=== PATIENT | female | born 1960 | race Caucasian/White ===

== ENCOUNTER 2017-03-15 06:58 | Inpatient (IN) | payer OTHER ==
[~2017-03-15] VITALS: Ht 162.6 cm; Wt 69.7 kg
[~2017-03-15 06:58] MED LIST: ASPI1TAB30 PO; DOXY100T PO; HYDR-3240 PO; INSU100C5 SQ-INSULIN; INSU100I13 SQ-INSULIN; INSU100V8 SQ; LEVO750T26 PO; LIRA0.6P SQ; METH750T87 PO; SITA50TA PO
[2017-03-15] MEDS ORDERED: ONDANSETRON 2MG/ML, 2ML ONE (07:15)
[2017-03-15] MEDS ORDERED: ONDANSETRON 2MG/ML, 2ML IVPush ONE (07:30)
[2017-03-15] MEDS ORDERED: MORPHINE SULFATE 4 MG/ML, 1ML IVPush ONE (07:30)
[2017-03-15] MEDS ORDERED: SODIUM CHLORIDE 0.9% 1,000ML IVBOLUS ONE ×2 (07:30)
[2017-03-15 07:35] LABS: PATH.CAST-FLAG NOT PRESENT; SPERM-FLAG NOT PRESENT; SRC-FLAG NOT PRESENT; XTAL-FLAG NOT PRESENT; YLC-FLAG NOT PRESENT
[2017-03-15] MEDS ORDERED: MORPHINE SULFATE 4 MG/ML, 1ML ONE (07:39)
[2017-03-15 07:53] LABS: ASPARTATE AMINO TRANSFERASE 23 U/L (15-37); BLOOD UREA NITROGEN 38 mg/dL (7-18)
[2017-03-15] MEDS ORDERED: NS + 20MEQ KCL 1,000 ML IV ONE ×2 (08:17→08:32)
[2017-03-15] MEDS ORDERED: REGULAR INSULIN 62.5 UNITS in SODIUM CHLORIDE 0.9% 249.375 ML IV PRN ×2 (08:17→10:30)
[2017-03-15 08:43] LABS: FIO2 ROOM AIR %; PH, VENOUS 6.992 pH (7.320-7.420)
[2017-03-15] MEDS: D5%-0.45NACL+KCL 20MEQ 1,000 ML IV SCH ×3 (10:12→23:17)
[2017-03-15] MEDS ORDERED: ONDANSETRON 2MG/ML, 2ML IVPush PRN (10:30)
[2017-03-15] MEDS ORDERED: LABETALOL 5MG/ML, 20ML IVPush PRN (10:30)
[2017-03-15] MEDS ORDERED: TEMAZEPAM 15 MG CAPSULE PO PRN (10:30)
[2017-03-15] MEDS ORDERED: POLYETHYLENE GLYCOL 17 GM PACKET PO PRN (10:30)
[2017-03-15] MEDS ORDERED: METHOCARBAMOL 750 MG TABLET PO PRN (10:30)
[2017-03-15] MEDS: ENOXAPARIN 40 MG/0.4 ML SQ SCH (11:28)
[2017-03-15] MEDS: SODIUM CHLORIDE 0.9% 1,000 ML IV SCH ×2 (11:28→15:12)
[2017-03-15 15:11] LABS: BLOOD UREA NITROGEN 29 mg/dL (7-18)
[2017-03-15 20:05] LABS: BLOOD UREA NITROGEN 26 mg/dL (7-18)
[2017-03-16 00:32] LABS: BLOOD UREA NITROGEN 24 mg/dL (7-18)
[2017-03-16] MEDS: ACETAMINOPHEN 325 MG TABLET PO PRN (02:28)
[2017-03-16 04:00] VITALS: BP 96/56
[2017-03-16 05:07] LABS: ASPARTATE AMINO TRANSFERASE 12 U/L (15-37); BLOOD UREA NITROGEN 21 mg/dL (7-18)
[2017-03-16] MEDS: D5%-0.45NACL+KCL 20MEQ 1,000 ML IV SCH ×2 (05:58→12:52)
[2017-03-16] MEDS ORDERED: SODIUM PHOSPHATE 20 MMOL in SODIUM CHLORIDE 0.9% 500 ML IV ONE (07:30)
[2017-03-16 08:17] LABS: BLOOD UREA NITROGEN 19 mg/dL (7-18)
[2017-03-16] MEDS ORDERED: REGULAR INSULIN 62.5 UNITS in SODIUM CHLORIDE 0.9% 249.375 ML IV PRN (08:17)
[2017-03-16] MEDS ORDERED: SENNA/DOCUSATE TABLET PO SCH (09:00)
[2017-03-16] MEDS: ENOXAPARIN 40 MG/0.4 ML SQ SCH (10:32)
[2017-03-16 12:31] LABS: BLOOD UREA NITROGEN 16 mg/dL (7-18)
[2017-03-16] MEDS: INSULIN DETEMIR 100 UNITS/ML, PEN SQ-INSULIN SCH (14:28)
[2017-03-16] MEDS: INSULIN ASPART 100 UNITS/ML, PEN SQ-INSULIN SCH ×2 (17:12→20:38)
[2017-03-17] MEDS: INSULIN DETEMIR 100 UNITS/ML, PEN SQ-INSULIN SCH (01:45)
[2017-03-17] MEDS: ACETAMINOPHEN 325 MG TABLET PO PRN (04:16)
[2017-03-17 04:30] VITALS: BP 114/73
[2017-03-17 04:49] LABS: BLOOD UREA NITROGEN 14 mg/dL (7-18)
[2017-03-17] MEDS: INSULIN ASPART 100 UNITS/ML, PEN SQ-INSULIN SCH (06:28)
[2017-03-17 08:30] VITALS: BP 125/69
[2017-03-17] MEDS ORDERED: INSULIN DETEMIR 100 UNITS/ML, PEN SQ-INSULIN SCH (13:30)
== END 2017-03-17 11:25 | disposition home or self-care (01) | DRG 637 ==
LOC: ED 08:18 → EDIP 09:17 → CCU 10:53 → DCLOUNGE 03-17 11:12
PROVIDERS: ADMIT Internal Medicine; ATTEND Internal Medicine
DX: E13.10 Other specified diabetes mellitus with ketoacidosis without coma (principal); N17.0 Acute kidney failure with tubular necrosis; E87.1 Hypo-osmolality and hyponatremia; E86.0 Dehydration; I34.1 Nonrheumatic mitral (valve) prolapse; D72.829 Elevated white blood cell count, unspecified; Z90.711 Acquired absence of uterus with remaining cervical stump; Z79.4 Long term (current) use of insulin; Z88.5 Allergy status to narcotic agent; Z88.0 Allergy status to penicillin; Z88.8 Allergy status to other drugs, medicaments and biological substances; Z79.899 Other long term (current) drug therapy; Z82.5 Family history of asthma and other chronic lower respiratory diseases
CPT/HCPCS: 36415; 74022; 80048; 80053; 80061; 81001; 82010; 82803; 82962; 83036; 83690; 83735; 84100; 84443; 85025; 87081; 93005; 96361; 96365; 96375; J1650; J1815; J2405; J3480; J7030; J7040; J7050

== ENCOUNTER 2018-02-16 05:35 | Emergency (ER) | payer OTHER ==
[~2018-02-16] VITALS: Ht 162.6 cm; Wt 65.0 kg
[~2018-02-16 05:35] MED LIST changes: -ASPI1TAB30 PO; +ASPI1TAB31 PO
[2018-02-16] MEDS ORDERED: NPH,100V5 SQ (05:44)
[2018-02-16] MEDS ORDERED: LORazepam 1MG TABLET PO ONE (06:00)
[2018-02-16] MEDS ORDERED: LORazepam 1MG TABLET ONE (06:17)
[2018-02-16 06:28] LABS: BASOPHILS # (AUTO) 0.12 x10^3/uL (0-0.1); BASOPHILS % (AUTO) 2 % (0-1); EOSINOPHILS # (AUTO) 0.16 x10^3/uL (0-0.4); EOSINOPHILS % (AUTO) 2 % (1-7); LYMPHOCYTES # (AUTO) 2.21 x10^3/uL (1-3.4); LYMPHOCYTES % (AUTO) 27 % (22-44); MD NO; MEAN CORPUSCULAR HEMOGLOBIN 30.1 pg (27.0-34.8); MEAN CORPUSCULAR HGB CONC 33.6 g/dL (32.4-35.8); MEAN CORPUSCULAR VOLUME 89.6 fL (80-100); MEAN PLATELET VOLUME 8.7 fL (7.4-10.4); MONOCYTES % (AUTO) 7 % (2-9); NEUTROPHILS # (AUTO) 5.02 x10^3/uL (1.8-6.8); NEUTROPHILS % (AUTO) 62 % (42-75); PLATELET COUNT 294 x10^3/uL (130-400); RED CELL DISTRIBUTION WIDTH 13.7 % (9.6-15.2)
[2018-02-16 06:40] LABS: CALCIUM 9.4 mg/dL (8.5-10.1); CHLORIDE 108 mmol/L (98-107)
[2018-02-16 06:47] LABS: ALANINE AMINOTRANSFERASE 24 U/L (12-78); ALBUMIN 3.6 g/dL (3.4-5.0); ALKALINE PHOSPHATASE 90 U/L (45-117); ANION GAP 9 mmol/L (5-15); BILIRUBIN,TOTAL 0.3 mg/dL (0.2-1.0); CREATININE 0.85 mg/dL (0.55-1.02); TOTAL PROTEIN 7.2 g/dL (6.4-8.2)
[2018-02-16 07:58] VITALS: BP 129/75
== END 2018-02-16 08:00 | disposition home or self-care (01) ==
LOC: ED 07:56
DX: G25.2 Other specified forms of tremor (principal); E11.9 Type 2 diabetes mellitus without complications
CPT/HCPCS: 36415; 80053; 85025; 99284

== ENCOUNTER → 2018-03-09 | Outpatient (CLI) | payer OTHER ==
[~2018-03-09] MED LIST changes: +NPH,100V5 SQ
== END | disposition home or self-care (01) ==
LOC: CFH 09:10
PROVIDERS: ATTEND Internal Medicine
DX: I08.0 Rheumatic disorders of both mitral and aortic valves (principal); E11.9 Type 2 diabetes mellitus without complications; R01.1 Cardiac murmur, unspecified
CPT/HCPCS: 93306

== ENCOUNTER 2020-02-14 07:15 | Day surgery (SDC) | payer OTHER ==
[2020-02-13 09:10] VITALS: BP 112/72
[2020-02-13 09:50] LABS: CHLORIDE 109 mmol/L (98-107)
[2020-02-13 10:09] LABS: ALANINE AMINOTRANSFERASE 25 U/L (12-78); ALBUMIN 3.5 g/dL (3.4-5.0); ALKALINE PHOSPHATASE 90 U/L (45-117); ANION GAP 5 mmol/L (5-15); BILIRUBIN,TOTAL 0.3 mg/dL (0.2-1.0); CALCIUM 9.9 mg/dL (8.5-10.1); CREATININE 0.84 mg/dL (0.55-1.02); TOTAL PROTEIN 7.5 g/dL (6.4-8.2)
[~2020-02-14] VITALS: Ht 162.6 cm; Wt 68.2 kg
[2020-02-14] MEDS ORDERED: LACTATED RINGERS 1,000 ML IV SCH (07:53)
[2020-02-14] MEDS ORDERED: CHLORHEXIDINE 15 ML UDC MM ONE (08:00)
[2020-02-14] MEDS ORDERED: FAMOTIDINE 20 MG TABLET PO ONE (08:30)
[2020-02-14] MEDS ORDERED: ACETAMINOPHEN 500 MG TABLET PO ONE (08:30)
[2020-02-14] MEDS ORDERED: OXYcodone IR 5MG TABLET PO ONE (08:30)
[2020-02-14] MEDS ORDERED: FENTANYL PF 250 MCG/5ML ONE (08:43)
[2020-02-14] MEDS ORDERED: MIDAZOLAM 1 MG/ML, 2ML ONE (08:43)
[2020-02-14] MEDS ORDERED: ROPIvacaine/PF 0.5%, 30 ML ONE ×2 (08:44)
[2020-02-14] MEDS ORDERED: CEFAZOLIN 1,000 MG ONE ×2 (08:44)
[2020-02-14] MEDS ORDERED: PROPOFOL 10 MG/ML, 20ML ONE ×2 (08:44)
[2020-02-14] MEDS ORDERED: ONDANSETRON 2MG/ML, 2ML ONE (10:23)
[2020-02-14] MEDS ORDERED: INSULIN LISPRO 100 UNIT/ML, 3ML VIAL SQ-INSULIN ONE (11:00)
[2020-02-14] MEDS ORDERED: FENTANYL PF 100 MCG/2ML ONE (11:06)
[2020-02-14] MEDS ORDERED: OXYcodone 5 MG/5 ML ORAL.SOL UDC ONE (11:07)
[2020-02-14] MEDS ORDERED: MEPERIDINE/PF 25MG/0.5ML IVPush PRN (11:30)
[2020-02-14] MEDS ORDERED: FENTANYL PF 100 MCG/2ML IV PRN (11:30)
[2020-02-14] MEDS ORDERED: PROMETHAZINE 25 MG/ML, 1ML IVPush PRN (11:30)
[2020-02-14] MEDS ORDERED: OXYcodone 5 MG/5 ML ORAL.SOL UDC PO PRN (11:30)
== END 2020-02-14 12:50 | disposition home or self-care (01) ==
LOC: OUT 07:15
PROVIDERS: ATTEND Orthopaedic Surgery Foot and Ankle Surgery
DX: S82.65XD Nondisplaced fracture of lateral malleolus of left fibula, subsequent encounter for closed fracture with routine healing (principal); Z11.59 Encounter for screening for other viral diseases; S93.432D Sprain of tibiofibular ligament of left ankle, subsequent encounter; M24.672 Ankylosis, left ankle; E11.9 Type 2 diabetes mellitus without complications; Z79.4 Long term (current) use of insulin; Z79.899 Other long term (current) drug therapy; Z88.0 Allergy status to penicillin; Z88.8 Allergy status to other drugs, medicaments and biological substances; X58.XXXD Exposure to other specified factors, subsequent encounter
CPT/HCPCS: 27726; 27829; 29898; 36415; 64445; 73610; 80053; 82962; 93005; C1713; J0690; J1817; J2250; J2405; J2704; J2795; J3010; J7120; U0001; 76000

== ENCOUNTER 2020-07-01 15:41 | Emergency (ER) | payer OTHER ==
[~2020-07-01] VITALS: Ht 162.6 cm; Wt 73.3 kg
[2020-07-01] MEDS ORDERED: SODIUM CHLORIDE FLUSH 10ML SYR IVF ONE (16:30)
[2020-07-01 16:36] LABS: BASOPHILS % (AUTO) 0 % (0-1); EOSINOPHILS % (AUTO) 3 % (1-7); LYMPHOCYTES % (AUTO) 32 % (22-44); MEAN CORPUSCULAR HEMOGLOBIN 29.6 pg (27.0-34.8); MEAN CORPUSCULAR HGB CONC 32.8 g/dL (32.4-35.8); MEAN PLATELET VOLUME 8.8 fL (7.4-10.4); MONOCYTES % (AUTO) 9 % (2-9); NEUTROPHILS % (AUTO) 56 % (42-75); PLATELET COUNT 320 x10^3/uL (130-400); RED BLOOD COUNT 4.66 x10^6/uL (3.82-5.3); RED CELL DISTRIBUTION WIDTH 14.1 % (9.6-15.2)
[2020-07-01 16:42] LABS: ALANINE AMINOTRANSFERASE 27 U/L (12-78); ALBUMIN 3.7 g/dL (3.4-5.0); ANION GAP 8 mmol/L (5-15); CALCIUM 9.9 mg/dL (8.5-10.1); CHLORIDE 103 mmol/L (98-107)
[2020-07-01 16:48] LABS: ALKALINE PHOSPHATASE 127 U/L (45-117); BILIRUBIN,TOTAL 0.3 mg/dL (0.2-1.0); CREATININE 1.06 mg/dL (0.55-1.02); TOTAL PROTEIN 7.7 g/dL (6.4-8.2); TROPONIN I < 0.015 ng/mL (0.000-0.045)
[2020-07-01 16:52] LABS: MD NO
--- NOTE | 2020-07-01 17:02 | NUR ---
PT UPRIGHT ON GURNEY AWAKE & COMFORTABLE, WATCHING TV, RESPONDS APPROP TO STAFF, NAD, COMFORT MEASURES PROVIDED, CALL LIGHT WITHIN REACH.
[2020-07-01] MEDS ORDERED: OMNIPAQUE 350 MG/ML, 100ML BOTTLE ONE (17:55)
[2020-07-01 18:01] VITALS: BP 134/74
--- NOTE | 2020-07-01 18:01 | NUR ---
PT REMAINS UPRIGHT ON GURNEY AWAKE & COMFORTABLE, WATCHING TV, RESPONDS APPROP TO STAFF, NAD, COMFORT MEASURES PROVIDED, CALL LIGHT WITHIN REACH.
--- NOTE | 2020-07-01 18:49 | NUR ---
Patient given discharge instructions and they have confirmed that they understand the instructions. Patient ambulatory with steady gait.
== END 2020-07-01 18:51 | disposition home or self-care (01) ==
LOC: ED 18:25
DX: R06.00 Dyspnea, unspecified (principal); R07.89 Other chest pain; R06.02 Shortness of breath; E11.9 Type 2 diabetes mellitus without complications
CPT/HCPCS: 36415; 71275; 80053; 83880; 84484; 85025; 85379; 93005; 99285; Q9967

== ENCOUNTER 2021-05-30 11:44 | Emergency (ER) | payer OTHER ==
[~2021-05-30] VITALS: Ht 162.6 cm; Wt 61.6 kg
[~2021-05-30 11:44] MED LIST changes: +HYDR-2214 PO; -HYDR-3240 PO
--- NOTE | 2021-05-30 15:14 | NUR ---
diet kitchen cook note: Pt to room from lobby.
--- NOTE | 2021-05-30 16:30 | NUR ---
Pt resting in bed, NADN.
--- NOTE | 2021-05-30 17:16 | NUR ---
PT RESTING IN BED, ON MONITORS, NO DISTRESS. UP FOR ERMD RECHECK.
--- NOTE | 2021-05-30 17:57 | NUR ---
PT RESTING IN BED, NO RESPIR DISTRESS NOTED, PT PROTECTING OWN AIRWAY WELL. PT REMAINS ON MONITORS, VSS. AWAITING ALL LAB RESULTS. CONT TO MONITOR.
[2021-05-30 18:27] LABS: BASOPHILS % (AUTO) 1 % (0-1); EOSINOPHILS % (AUTO) 0 % (1-7); LYMPHOCYTES % (AUTO) 10 % (22-44); MEAN CORPUSCULAR HEMOGLOBIN 30.6 pg (27.0-34.8); MEAN CORPUSCULAR HGB CONC 33.9 g/dL (32.4-35.8); MEAN PLATELET VOLUME 9.3 fL (7.4-10.4); MONOCYTES % (AUTO) 8 % (2-9); NEUTROPHILS % (AUTO) 81 % (42-75); PLATELET COUNT 268 x10^3/uL (130-400); RED BLOOD COUNT 5.21 x10^6/uL (3.82-5.3); RED CELL DISTRIBUTION WIDTH 13.6 % (9.6-15.2)
[2021-05-30 18:37] LABS: ALBUMIN 3.3 g/dL (3.4-5.0); ANION GAP 19 mmol/L (5-15); CALCIUM 10.8 mg/dL (8.5-10.1); CHLORIDE 103 mmol/L (98-107)
[2021-05-30 18:41] LABS: ALANINE AMINOTRANSFERASE 27 U/L (12-78); ALKALINE PHOSPHATASE 92 U/L (45-117); BILIRUBIN,TOTAL 0.4 mg/dL (0.2-1.0); CREATININE 1.13 mg/dL (0.55-1.02); TOTAL PROTEIN 8.4 g/dL (6.4-8.2)
[2021-05-30 18:49] VITALS: BP 127/78
--- NOTE | 2021-05-30 18:49 | NUR ---
PT OK FOR D/C PER [facility]. PT VERBALIZED UNDERSTANDING OF D/C INSTRUCTIONS.
== END 2021-05-30 18:51 | disposition home or self-care (01) ==
LOC: ED 12:47
DX: U07.1 COVID-19 (principal); J40 Bronchitis, not specified as acute or chronic; R05 Cough; R53.83 Other fatigue; R10.9 Unspecified abdominal pain
CPT/HCPCS: 36415; 71045; 80053; 83605; 83690; 85025; 87040; 93005; 99285; U0003; U0005; 82962

== ENCOUNTER 2021-05-31 10:45 | Inpatient (IN) | payer OTHER ==
[~2021-05-31] VITALS: Ht 167.6 cm; Wt 70.9 kg
[~2021-05-31 10:45] MED LIST changes: +CALCIUM CHLORIDE 10%, 10ML SYR ONE; +ETOMIDATE 20 MG/10 ML ONE; +VECURONIUM 20 MG VIAL ONE
[2021-05-31] MEDS ORDERED: ASPIRIN 325 MG TABLET PO STA (10:48)
[2021-05-31] MEDS ORDERED: INSULIN SINGLE DOSE, ER ONE (10:59)
[2021-05-31] MEDS ORDERED: CALCIUM CHLORIDE 10%, 10ML SYR IVPush ONE (11:00)
[2021-05-31] MEDS ORDERED: CEFTRIAXONE 1,000 MG in DEXTROSE 5% 50 ML IVPB ONE (11:00)
[2021-05-31] MEDS ORDERED: INSULIN REGULAR 100 UNITS/ML, 3ML VIAL IVPush ONE (11:00)
[2021-05-31] MEDS ORDERED: SODIUM CHLORIDE 0.9% 1,000ML IVBOLUS ONE ×2 (11:00)
[2021-05-31] MEDS ORDERED: SODIUM CHLORIDE FLUSH 10ML SYR IVF ONE (11:00)
[2021-05-31] MEDS ORDERED: AZITHROMYCIN 500 MG in SODIUM CHLORIDE 0.9% 250 ML IV ONE (11:00)
--- NOTE | 2021-05-31 11:00 | NUR ---
DR JAVIER AT BEDSIDE, PT MED NOTED WITH ETOMIDATE WITH EFFECT AND PT WAS INTUBATED BY DR JAVIER W/O DIFFICULTY. RIGHT NARE NGT PLACED AND CONFIRMED WITH AUSCULTATION. PCXR ORDERED FOR ETT AND NGT PLACEMENT. TURNER CATH INSERTED W/O DIFFICULTY. PT TOLLERATED ALL PROCEDURES WELL.
[2021-05-31 11:32] LABS: MEAN CORPUSCULAR HEMOGLOBIN 30.6 pg (27.0-34.8); MEAN PLATELET VOLUME 9.9 fL (7.4-10.4); PLATELET COUNT 353 x10^3/uL (130-400); RED BLOOD COUNT 4.93 x10^6/uL (3.82-5.3); RED CELL DISTRIBUTION WIDTH 16.3 % (9.6-15.2)
[2021-05-31 11:43] LABS: ALANINE AMINOTRANSFERASE 28 U/L (12-78); ALBUMIN 2.9 g/dL (3.4-5.0); ANION GAP 30 mmol/L (5-15); CALCIUM 12.5 mg/dL (8.5-10.1); CHLORIDE 102 mmol/L (98-107); CREATININE 2.36 mg/dL (0.55-1.02); INTERNATIONAL NORMALIZED RATIO 1.07 (0.93-1.1); PROTHROMBIN TIME 11.4 Seconds (9.6-11.5)
[2021-05-31 11:48] LABS: ALKALINE PHOSPHATASE 149 U/L (45-117); BILIRUBIN,TOTAL 0.4 mg/dL (0.2-1.0); TOTAL PROTEIN 7.7 g/dL (6.4-8.2); TROPONIN I 0.349 ng/mL (0.000-0.045)
[2021-05-31 11:53] LABS: FIO2 100 %
[2021-05-31 12:03] LABS: MEAN CORPUSCULAR HGB CONC 29.2 g/dL (32.4-35.8)
[2021-05-31] MEDS ORDERED: SODIUM BICARBONATE 1 MEQ/ML, 50ML VIAL IVPush ONE ×3 (12:07→12:15)
[2021-05-31] MEDS ORDERED: SODIUM BICARB 8.4%, 50ML SYRINGE ONE ×2 (12:07→12:17)
[2021-05-31 12:09] LABS: ACETONE, SERUM Large (80mg/dL) (Negative)
--- NOTE | 2021-05-31 12:15 | NUR ---
LATE ENTRY, PT WITH RHYTHMIC EYE FLUTTERING NOTED, DISCUSSED WITH DR JAVIER. ORDER REC'D FOR ATIVAN AND EEG.
[2021-05-31] MEDS ORDERED: LORazepam 2 MG/ML, 1ML ONE (12:17)
[2021-05-31 12:24] LABS: ANISOCYTOSIS 1+; BAND#(MANUAL) 3.43 x10^3/uL; BANDS%(MANUAL) 13 % (0-7); LYMPH#(MANUAL) 2.64 x10^3/uL (1-3.4); LYMPHS% (MANUAL) 10 % (22-44); METAMYELOCYTES# (MANUAL) 0.53 x10^3/uL (0-0); METAMYELOCYTES% (MANUAL) 2 % (0-1); MONOS#(MANUAL) 1.06 x10^3/uL (0.3-2.7); MONOS% (MANUAL) 4 % (2-9); OVALOCYTES 1+; SEG#(MANUAL) 18.74 x10^3/uL (1.8-6.8); SEGS% (MANUAL) 71 % (42-75)
[2021-05-31 12:25] LABS: <PLATELET ESTIMATE> ADEQUATE; <PLT MORPHOLOGY> NORMAL PLT MORPH; ECHINOCYTES 1+
[2021-05-31 12:29] LABS: PMNS WITH VACUOLES 1+
[2021-05-31] MEDS ORDERED: LORazepam 2 MG/ML, 1ML IVPush ONE (12:30)
[2021-05-31] MEDS ORDERED: ETOMIDATE 20 MG/10 ML IVPush ONE ×2 (12:30)
--- NOTE | 2021-05-31 12:35 | NUR ---
LATE ENTRY, PT TO CT WITH RN, RT TRANSPORT. CT COMPLETED W/O DIFFICULTY AND PT RTD TO ED
[2021-05-31 12:58] LABS: FIO2 80 %
--- NOTE | 2021-05-31 13:12 | NUR ---
BIB EMS FROM HOME, ALTERED LOC, BS = HIGH, PEAKED T-WAVES T/O EKG, EMS GAVE 300NS, 1 AMP BICARB, 1GM CALCIUM INSPECTOR PACKER, PT ARRIVES NRB 15. DR JAVIER AT BEDSIDE, ASSESSMENT DISCUSSED AND ORDERS REC'D. DR SMYTH ALSO PRESENT AND CONFIRMS POC
[2021-05-31 13:24] LABS: ALBUMIN 2.2 g/dL (3.4-5.0); ANION GAP 26 mmol/L (5-15); CHLORIDE 115 mmol/L (98-107); CREATININE 1.96 mg/dL (0.55-1.02)
--- NOTE | 2021-05-31 13:40 | NUR ---
LATE ENTRY, DR SMYTH AT BEDSIDE, PT ASSESSMENT REVIEWED. ADDITIONAL ORDERS REC'D
--- NOTE | 2021-05-31 14:50 | NUR ---
LATE ENTRY, DR JAVIER BROUGHT TO BEDSIDE. PT ASSESSMENT DISCUSSED, POC AND QUESTIONS ANSWERED.
[2021-05-31] MEDS ORDERED: PHARMACY MAY ADJ FOR RENAL FX MC PRN (15:00)
[2021-05-31] MEDS ORDERED: ONDANSETRON 2MG/ML, 2ML IVPush PRN (15:00)
[2021-05-31] MEDS ORDERED: VANCOMYCIN PMX 1GM/200ML 200 ML IV ONE (15:00)
[2021-05-31] MEDS: SODIUM CHLORIDE 0.9% 1,000 ML IV SCH ×2 (15:08→23:22)
[2021-05-31] MEDS: MEROPENEM 1 GM in SODIUM CHLORIDE 0.9% 100 ML IV SCH ×2 (15:16→23:06)
[2021-05-31 15:19] LABS: MICROSCOPIC INDICATED
[2021-05-31 15:25] LABS: ANION GAP 25 mmol/L (5-15); CALCIUM 10.1 mg/dL (8.5-10.1); CHLORIDE 116 mmol/L (98-107); CREATININE 1.94 mg/dL (0.55-1.02)
--- NOTE | 2021-05-31 15:29 | NUR ---
DR SMYTH AT BEDSIDE, POC DISCUSSED WITH AND QUESTIONS ANSWERED.
[2021-05-31] MEDS ORDERED: NOREPINEPHRINE 8 MG in SODIUM CHLORIDE 0.9% 242 ML IV PRN (15:30)
[2021-05-31 15:38] LABS: TROPONIN I 0.668 ng/mL (0.000-0.045)
--- NOTE | 2021-05-31 15:58 | NUR ---
SPOUSE, NOAH ERICKSON [phone]
[2021-05-31] MEDS: REGULAR INSULIN 100 UNITS in SODIUM CHLORIDE 0.9% 99 ML IV PRN ×2 (16:00→22:30)
[2021-05-31] MEDS ORDERED: HEPARIN 5,000 UNITS/ML, 1ML ONE (16:09)
[2021-05-31] MEDS ORDERED: ASPIRIN 300 MG SUPP ONE (16:09)
[2021-05-31] MEDS: HEPARIN 5,000 UNITS/ML, 1ML SQ SCH ×2 (16:13→23:22)
[2021-05-31] MEDS ORDERED: ASPIRIN 300 MG SUPP PR ONE (16:30)
[2021-05-31] MEDS ORDERED: VANCOMYCIN PER PHARMACY MC PRN (16:30)
[2021-05-31] MEDS ORDERED: PHARMACOKINETIC CONSULTATION MC ONE (16:30)
[2021-05-31] MEDS ORDERED: PHARMACOKINETIC MONITORING MC PRN (16:30)
[2021-05-31] MEDS ORDERED: PHARMACY INSTRUCTION MC PRN (17:00)
[2021-05-31] MEDS ORDERED: VANCOMYCIN 1,500 MG in SODIUM CHLORIDE 0.9% 250 ML IV ONE (17:00)
[2021-05-31] MEDS ORDERED: ASCORBIC ACID 250 MG TAB PO SCH (17:00)
[2021-05-31] MEDS ORDERED: CHOLECALCIFEROL 5,000u TAB ONE (17:18)
[2021-05-31] MEDS ORDERED: ASCORBIC ACID 500 MG TABLET ONE (17:18)
[2021-05-31] MEDS ORDERED: DEXAMETHASONE 4 MG/ML, 1ML ONE (17:18)
[2021-05-31] MEDS ORDERED: ZINC SULFATE 220 MG CAPSULE ONE (17:19)
[2021-05-31] MEDS ORDERED: ACETAMINOPHEN 650 MG SUPP ONE (17:23)
[2021-05-31] MEDS: ZINC SULFATE 220 MG CAPSULE PO SCH (17:25)
[2021-05-31] MEDS: CHOLECALCIFEROL 5,000u TAB PO SCH (17:26)
[2021-05-31] MEDS: DEXAMETHASONE 4 MG/ML, 1ML IVPush SCH (17:26)
--- NOTE | 2021-05-31 17:30 | NUR ---
LATE ENTRY, NOAH BANKS GOING HOME. REINFORCED VISITING POLICY GOING FORWARD. NO VISITORS IN THE ICU UNTIL FURTHER NOTICE. NOAH VERBALIZED UNDERSTANDING.
[2021-05-31] MEDS ORDERED: ACETAMINOPHEN 650 MG/20.3 ML UDC ONE (17:53)
[2021-05-31] MEDS: ACETAMINOPHEN 650 MG/20.3 ML UDC PO SCH ×2 (17:55→23:22)
[2021-05-31 18:00] VITALS: BP 88/52
[2021-05-31] MEDS ORDERED: REMDESIVIR 200 MG in SODIUM CHLORIDE 0.9% 100 ML IVPB ONE (18:00)
[2021-05-31] MEDS ORDERED: ACETAMINOPHEN 650 MG SUPP PR PRN (18:00)
[2021-05-31 19:08] LABS: ANION GAP 22 mmol/L (5-15); CALCIUM 10.1 mg/dL (8.5-10.1); CHLORIDE 120 mmol/L (98-107); CREATININE 2.37 mg/dL (0.55-1.02)
[2021-05-31] MEDS: D5%-0.45NACL+KCL 20MEQ 1,000 ML IV SCH ×2 (19:19→23:00)
[2021-05-31] MEDS ORDERED: PROPOFOL 100 ML IV ONE (19:36)
[2021-05-31] MEDS: THIAMINE 100 MG in SODIUM CHLORIDE 0.9% 50 ML IV SCH (19:59)
[2021-05-31] MEDS: PROPOFOL 100 ML IV PRN (20:00)
[2021-05-31] MEDS: FENTANYL PF 1,000 MCG in SODIUM CHLORIDE 0.9% 80 ML IV PRN (20:32)
[2021-05-31] MEDS ORDERED: NOREPINEPHRINE 32 MG in SODIUM CHLORIDE 0.9% 218 ML IV PRN (21:00)
[2021-05-31] MEDS ORDERED: SODIUM BICARBONATE 1 MEQ/ML, 50ML VIAL IVPush STA ×2 (21:35)
[2021-05-31] MEDS ORDERED: SODIUM BICARBONATE 8.4% 150 MEQ in DEXTROSE 5% 1,000 ML IV SCH (22:00)
[2021-06-01 01:11] LABS: ANION GAP 14 mmol/L (5-15); CALCIUM 9.7 mg/dL (8.5-10.1); CHLORIDE 124 mmol/L (98-107)
[2021-06-01 01:12] LABS: CREATININE 2.61 mg/dL (0.55-1.02)
[2021-06-01] MEDS: PROPOFOL 100 ML IV PRN ×3 (01:38→18:33)
[2021-06-01] MEDS ORDERED: POTASSIUM CHLORIDE 20 MEQ PACKET PO ONE (02:00)
[2021-06-01] MEDS ORDERED: POTASSIUM CHLORIDE 40 MEQ in SODIUM CHLORIDE 0.9% 100 ML IV ONE (02:30)
[2021-06-01] MEDS: REGULAR INSULIN 100 UNITS in SODIUM CHLORIDE 0.9% 99 ML IV PRN (04:15)
[2021-06-01] MEDS: D5%-0.45NACL+KCL 20MEQ 1,000 ML IV SCH (04:16)
[2021-06-01 05:56] LABS: MEAN PLATELET VOLUME 8.8 fL (7.4-10.4); PLATELET COUNT 231 x10^3/uL (130-400); RED BLOOD COUNT 4.13 x10^6/uL (3.82-5.3); RED CELL DISTRIBUTION WIDTH 13.9 % (9.6-15.2)
[2021-06-01] MEDS: ACETAMINOPHEN 650 MG/20.3 ML UDC PO SCH (06:11)
[2021-06-01] MEDS: HEPARIN 5,000 UNITS/ML, 1ML SQ SCH (06:11)
[2021-06-01 06:26] LABS: <PLATELET ESTIMATE> ADEQUATE; <PLT MORPHOLOGY> NORMAL PLT MORPH; ANISOCYTOSIS 1+; BAND#(MANUAL) 0.13 x10^3/uL; BANDS%(MANUAL) 1 % (0-7); LYMPH#(MANUAL) 1.31 x10^3/uL (1-3.4); LYMPHS% (MANUAL) 10 % (22-44); MONOS#(MANUAL) 0.92 x10^3/uL (0.3-2.7); MONOS% (MANUAL) 7 % (2-9); OVALOCYTES 1+; SEG#(MANUAL) 10.74 x10^3/uL (1.8-6.8); SEGS% (MANUAL) 82 % (42-75)
[2021-06-01] MEDS: PANTOPRAZOLE 40 MG IV IVPush SCH (06:33)
[2021-06-01 06:34] LABS: CHLORIDE 129 mmol/L (98-107)
[2021-06-01 07:10] LABS: ALANINE AMINOTRANSFERASE 24 U/L (12-78); ALKALINE PHOSPHATASE 87 U/L (45-117); ANION GAP 10 mmol/L (5-15); BILIRUBIN,TOTAL 0.3 mg/dL (0.2-1.0); CALCIUM 10.1 mg/dL (8.5-10.1); CREATININE 2.57 mg/dL (0.55-1.02); TOTAL PROTEIN 5.6 g/dL (6.4-8.2)
[2021-06-01 07:16] LABS: BILIRUBIN, DIRECT < 0.1 mg/dL (0.1-0.2); BILIRUBIN,INDIRECT 0.2 mg/dL (0.0-2.0)
[2021-06-01] MEDS: MEROPENEM 1 GM in SODIUM CHLORIDE 0.9% 100 ML IV SCH ×3 (07:55→21:41)
[2021-06-01 07:57] LABS: FIO2 50 %
[2021-06-01 08:17] LABS: D-DIMER 21.08 ug/mlFEU (0.00-0.52)
[2021-06-01] MEDS ORDERED: POTASSIUM CHLORIDE 20 MEQ PACKET NG ONE (09:00)
[2021-06-01] MEDS: ZINC SULFATE 220 MG CAPSULE PO SCH (09:00)
[2021-06-01] MEDS ORDERED: POTASSIUM CHLORIDE 20 MEQ TAB.ER.PRT ONE (09:16)
[2021-06-01] MEDS: ASCORBIC ACID 500 MG TABLET PO SCH ×2 (09:26→17:41)
[2021-06-01] MEDS: DEXAMETHASONE 4 MG/ML, 1ML IVPush SCH (09:26)
[2021-06-01] MEDS: CHOLECALCIFEROL 5,000u TAB PO SCH (09:27)
[2021-06-01 10:02] LABS: ANION GAP 7 mmol/L (5-15); CALCIUM 9.7 mg/dL (8.5-10.1); CHLORIDE 128 mmol/L (98-107); CREATININE 2.45 mg/dL (0.55-1.02)
[2021-06-01] MEDS ORDERED: GLUCAGON 1 MG IM PRN (11:00)
[2021-06-01] MEDS ORDERED: DEXTROSE 4 GM TAB.CHEW PO PRN (11:00)
[2021-06-01] MEDS ORDERED: DEXTROSE 50%, 50ML SYRINGE IVPush PRN (11:00)
[2021-06-01] MEDS ORDERED: PHARMACY INSTRUCTION MC PRN (11:00)
[2021-06-01] MEDS ORDERED: INSULIN LISPRO 100 UNITS/ML, PEN SQ-INSULIN SCH ×3 (11:00→20:00)
[2021-06-01] MEDS ORDERED: INSULIN LISPRO 100 UNITS/ML, PEN ONE (11:23)
[2021-06-01] MEDS ORDERED: ENOXAPARIN 60 MG/0.6 ML SQ SCH (13:00)
[2021-06-01] MEDS: FENTANYL PF 1,000 MCG in SODIUM CHLORIDE 0.9% 80 ML IV PRN (13:07)
[2021-06-01] MEDS ORDERED: INSULIN GLARGINE 100 UNITS/ML, PEN ONE (14:07)
[2021-06-01] MEDS ORDERED: INSULIN GLARGINE 100 UNITS/ML, PEN SQ-INSULIN SCH (14:30)
[2021-06-01] MEDS ORDERED: INSULIN LISPRO 100 UNIT/ML, 3ML VIAL SQ-INSULIN ONE (15:30)
[2021-06-01] MEDS ORDERED: INSULIN LISPRO 100 UNITS/ML, PEN SQ-INSULIN ONE (15:30)
[2021-06-01] MEDS: VANCOMYCIN 1,200 MG in SODIUM CHLORIDE 0.9% 250 ML IV SCH (16:12)
[2021-06-01] MEDS: REMDESIVIR 100 MG in SODIUM CHLORIDE 0.9% 100 ML IVPB SCH (17:41)
[2021-06-01] MEDS: POTASSIUM CHLORIDE 40 MEQ in DEXTROSE 5% 1,000 ML IV SCH (18:32)
[2021-06-01] MEDS ORDERED: HEPARIN 25,000 UNITS/250ML PMX 250 ML IV PRN (19:00)
[2021-06-01] MEDS ORDERED: HEPARIN 5,000 UNITS/ML, 1ML IV PRN (19:00)
[2021-06-01] MEDS ORDERED: HEPARIN 5,000 UNITS/ML, 1ML IV ONE (19:00)
[2021-06-01] MEDS: THIAMINE 100 MG in SODIUM CHLORIDE 0.9% 50 ML IV SCH (19:38)
[2021-06-01] MEDS: INSULIN LISPRO 100 UNITS/ML, PEN SQ-INSULIN SCH (20:10)
[2021-06-01] MEDS: INSULIN GLARGINE 100 UNITS/ML, PEN SQ-INSULIN SCH (20:11)
[2021-06-01] MEDS: SODIUM CHLORIDE FLUSH 10ML SYR IVF SCH (20:14)
[2021-06-02] MEDS: POTASSIUM CHLORIDE 40 MEQ in DEXTROSE 5% 1,000 ML IV SCH ×2 (00:13→06:28)
[2021-06-02] MEDS: INSULIN LISPRO 100 UNITS/ML, PEN SQ-INSULIN SCH ×7 (00:14→23:54)
[2021-06-02 04:22] LABS: MEAN CORPUSCULAR HGB CONC 34.3 g/dL (32.4-35.8); MEAN PLATELET VOLUME 8.5 fL (7.4-10.4); PLATELET COUNT 175 x10^3/uL (130-400); RED BLOOD COUNT 3.95 x10^6/uL (3.82-5.3); RED CELL DISTRIBUTION WIDTH 14.4 % (9.6-15.2)
[2021-06-02 04:29] LABS: ANION GAP 5 mmol/L (5-15); CALCIUM 8.7 mg/dL (8.5-10.1); CHLORIDE 122 mmol/L (98-107); CREATININE 2.31 mg/dL (0.55-1.02)
[2021-06-02 05:08] LABS: ANISOCYTOSIS 1+; BAND#(MANUAL) 1.25 x10^3/uL; BANDS%(MANUAL) 7 % (0-7); LYMPH#(MANUAL) 1.25 x10^3/uL (1-3.4); LYMPHS% (MANUAL) 7 % (22-44); MONOS#(MANUAL) 0.72 x10^3/uL (0.3-2.7); MONOS% (MANUAL) 4 % (2-9); SEG#(MANUAL) 14.68 x10^3/uL (1.8-6.8); SEGS% (MANUAL) 82 % (42-75)
[2021-06-02 05:09] LABS: <PLATELET ESTIMATE> ADEQUATE; <PLT MORPHOLOGY> NORMAL PLT MORPH; ECHINOCYTES 1+; OVALOCYTES 1+
[2021-06-02] MEDS: MEROPENEM 1 GM in SODIUM CHLORIDE 0.9% 100 ML IV SCH ×3 (06:25→22:17)
[2021-06-02] MEDS: PANTOPRAZOLE 40 MG IV IVPush SCH (06:34)
[2021-06-02] MEDS ORDERED: RIVAROXABAN 20 MG TABLET PO SCH (08:00)
[2021-06-02] MEDS: SODIUM CHLORIDE FLUSH 10ML SYR IVF SCH ×2 (09:00→19:50)
[2021-06-02] MEDS: DEXAMETHASONE 4 MG/ML, 1ML IVPush SCH (09:46)
[2021-06-02] MEDS: ZINC SULFATE 220 MG CAPSULE PO SCH (09:48)
[2021-06-02] MEDS: CHOLECALCIFEROL 5,000u TAB PO SCH (09:48)
[2021-06-02] MEDS: ASCORBIC ACID 500 MG TABLET PO SCH ×2 (09:49→17:09)
[2021-06-02] MEDS: INSULIN GLARGINE 100 UNITS/ML, PEN SQ-INSULIN SCH ×2 (10:04→19:50)
[2021-06-02] MEDS: RIVAROXABAN 15 MG TABLET PO SCH (10:06)
[2021-06-02] MEDS: VANCOMYCIN 1,200 MG in SODIUM CHLORIDE 0.9% 250 ML IV SCH (13:18)
[2021-06-02] MEDS: PROPOFOL 100 ML IV PRN ×2 (13:19→21:57)
[2021-06-02 14:57] LABS: ALBUMIN 1.8 g/dL (3.4-5.0); BILIRUBIN, DIRECT 0.1 mg/dL (0.1-0.2)
[2021-06-02 14:58] LABS: BILIRUBIN,INDIRECT 0.2 mg/dL (0.0-2.0); BILIRUBIN,TOTAL 0.3 mg/dL (0.2-1.0); TOTAL PROTEIN 5.1 g/dL (6.4-8.2)
[2021-06-02] MEDS: REMDESIVIR 100 MG in SODIUM CHLORIDE 0.9% 100 ML IVPB SCH (17:10)
[2021-06-02] MEDS: THIAMINE 100 MG in SODIUM CHLORIDE 0.9% 50 ML IV SCH (19:41)
[2021-06-03] MEDS: INSULIN LISPRO 100 UNITS/ML, PEN SQ-INSULIN SCH ×5 (04:13→20:07)
[2021-06-03 04:42] LABS: MEAN CORPUSCULAR HEMOGLOBIN 29.8 pg (27.0-34.8); MEAN CORPUSCULAR HGB CONC 33.8 g/dL (32.4-35.8); MEAN PLATELET VOLUME 9.8 fL (7.4-10.4); PLATELET COUNT 153 x10^3/uL (130-400); RED BLOOD COUNT 3.92 x10^6/uL (3.82-5.3); RED CELL DISTRIBUTION WIDTH 14.6 % (9.6-15.2)
[2021-06-03 04:52] LABS: ANION GAP 5 mmol/L (5-15); CHLORIDE 120 mmol/L (98-107); CREATININE 1.79 mg/dL (0.55-1.02)
[2021-06-03 05:51] LABS: BAND#(MANUAL) 2.86 x10^3/uL; BANDS%(MANUAL) 14 % (0-7); LYMPH#(MANUAL) 1.22 x10^3/uL (1-3.4); LYMPHS% (MANUAL) 6 % (22-44); MONOS#(MANUAL) 1.02 x10^3/uL (0.3-2.7); MONOS% (MANUAL) 5 % (2-9); SEGS% (MANUAL) 75 % (42-75)
[2021-06-03 05:53] LABS: <PLATELET ESTIMATE> ADEQUATE; <PLT MORPHOLOGY> NORMAL PLT MORPH; ANISOCYTOSIS 1+; ECHINOCYTES 1+; OVALOCYTES 1+
[2021-06-03] MEDS: PROPOFOL 100 ML IV PRN ×2 (08:25→15:12)
[2021-06-03] MEDS: PANTOPRAZOLE 40 MG IV IVPush SCH (08:43)
[2021-06-03] MEDS: MEROPENEM 1 GM in SODIUM CHLORIDE 0.9% 100 ML IV SCH ×3 (08:43→23:22)
[2021-06-03] MEDS: CHOLECALCIFEROL 5,000u TAB PO SCH (08:44)
[2021-06-03] MEDS: ASCORBIC ACID 500 MG TABLET PO SCH ×2 (08:44→16:07)
[2021-06-03] MEDS: DEXAMETHASONE 4 MG/ML, 1ML IVPush SCH (08:44)
[2021-06-03] MEDS: ZINC SULFATE 220 MG CAPSULE PO SCH (08:44)
[2021-06-03] MEDS: RIVAROXABAN 15 MG TABLET PO SCH (08:44)
[2021-06-03] MEDS: SODIUM CHLORIDE FLUSH 10ML SYR IVF SCH ×2 (08:45→20:08)
[2021-06-03] MEDS: INSULIN GLARGINE 100 UNITS/ML, PEN SQ-INSULIN SCH ×2 (08:46→20:08)
[2021-06-03] MEDS: REMDESIVIR 100 MG in SODIUM CHLORIDE 0.9% 100 ML IVPB SCH (17:12)
[2021-06-03] MEDS: THIAMINE 100 MG in SODIUM CHLORIDE 0.9% 50 ML IV SCH (20:07)
[2021-06-04] MEDS: PROPOFOL 100 ML IV PRN ×2 (01:17→06:24)
[2021-06-04] MEDS: INSULIN LISPRO 100 UNITS/ML, PEN SQ-INSULIN SCH ×5 (04:00→21:00)
[2021-06-04 04:37] LABS: MEAN CORPUSCULAR HEMOGLOBIN 29.9 pg (27.0-34.8); MEAN CORPUSCULAR HGB CONC 34.1 g/dL (32.4-35.8); MEAN PLATELET VOLUME 9.7 fL (7.4-10.4); PLATELET COUNT 109 x10^3/uL (130-400); RED BLOOD COUNT 4.12 x10^6/uL (3.82-5.3); RED CELL DISTRIBUTION WIDTH 15.2 % (9.6-15.2)
[2021-06-04 04:50] LABS: ALBUMIN 1.6 g/dL (3.4-5.0); ANION GAP 3 mmol/L (5-15); CALCIUM 9.5 mg/dL (8.5-10.1); CHLORIDE 116 mmol/L (98-107)
[2021-06-04 04:54] LABS: ALANINE AMINOTRANSFERASE 40 U/L (12-78); ALKALINE PHOSPHATASE 130 U/L (45-117); BILIRUBIN,TOTAL 0.6 mg/dL (0.2-1.0); CREATININE 1.46 mg/dL (0.55-1.02)
[2021-06-04 05:42] LABS: ANISOCYTOSIS 1+; BAND#(MANUAL) 0.45 x10^3/uL; BANDS%(MANUAL) 2 % (0-7); LYMPH#(MANUAL) 1.12 x10^3/uL (1-3.4); LYMPHS% (MANUAL) 5 % (22-44); MONOS#(MANUAL) 0.67 x10^3/uL (0.3-2.7); MONOS% (MANUAL) 3 % (2-9); SEG#(MANUAL) 20.07 x10^3/uL (1.8-6.8); SEGS% (MANUAL) 90 % (42-75)
[2021-06-04 05:43] LABS: <PLATELET ESTIMATE> DECREASED; <PLT MORPHOLOGY> NORMAL PLT MORPH
[2021-06-04] MEDS: RIVAROXABAN 15 MG TABLET PO SCH (08:35)
[2021-06-04] MEDS: PANTOPRAZOLE 40 MG IV IVPush SCH (08:35)
[2021-06-04] MEDS: ASCORBIC ACID 500 MG TABLET PO SCH ×2 (08:35→17:20)
[2021-06-04] MEDS: MEROPENEM 1 GM in SODIUM CHLORIDE 0.9% 100 ML IV SCH ×3 (08:35→22:59)
[2021-06-04] MEDS: DEXAMETHASONE 4 MG/ML, 1ML IVPush SCH (08:35)
[2021-06-04] MEDS: ZINC SULFATE 220 MG CAPSULE PO SCH (08:36)
[2021-06-04] MEDS: CHOLECALCIFEROL 5,000u TAB PO SCH (08:36)
[2021-06-04] MEDS: SODIUM CHLORIDE FLUSH 10ML SYR IVF SCH ×2 (08:38→21:12)
[2021-06-04] MEDS: INSULIN GLARGINE 100 UNITS/ML, PEN SQ-INSULIN SCH ×2 (08:39→21:00)
[2021-06-04] MEDS ORDERED: DEXMEDETOMIDINE 400 MCG in SODIUM CHLORIDE 0.9% 96 ML IV PRN (13:00)
[2021-06-04] MEDS: VANCOMYCIN 1,200 MG in SODIUM CHLORIDE 0.9% 250 ML IV SCH ×2 (17:20)
[2021-06-04] MEDS: REMDESIVIR 100 MG in SODIUM CHLORIDE 0.9% 100 ML IVPB SCH (18:36)
[2021-06-04] MEDS ORDERED: FENTANYL PF 100 MCG/2ML ONE (21:01)
[2021-06-04] MEDS: THIAMINE 100 MG in SODIUM CHLORIDE 0.9% 50 ML IV SCH (21:12)
[2021-06-04] MEDS: FENTANYL PF 100 MCG/2ML IVPush PRN (21:16)
[2021-06-05] MEDS: PROPOFOL 100 ML IV PRN ×2 (02:51→08:54)
[2021-06-05] MEDS: INSULIN LISPRO 100 UNITS/ML, PEN SQ-INSULIN SCH ×4 (03:00→21:05)
[2021-06-05 04:28] LABS: BASOPHILS % (AUTO) 0 % (0-1); EOSINOPHILS % (AUTO) 0 % (1-7); LYMPHOCYTES % (AUTO) 7 % (22-44); MEAN CORPUSCULAR HEMOGLOBIN 29.3 pg (27.0-34.8); MEAN CORPUSCULAR HGB CONC 33.3 g/dL (32.4-35.8); MEAN PLATELET VOLUME 9.8 fL (7.4-10.4); MONOCYTES % (AUTO) 11 % (2-9); NEUTROPHILS % (AUTO) 81 % (42-75); PLATELET COUNT 68 x10^3/uL (130-400); RED BLOOD COUNT 4.39 x10^6/uL (3.82-5.3); RED CELL DISTRIBUTION WIDTH 14.8 % (9.6-15.2)
[2021-06-05 04:38] LABS: ANION GAP 4 mmol/L (5-15); CALCIUM 8.7 mg/dL (8.5-10.1); CHLORIDE 115 mmol/L (98-107)
[2021-06-05 06:06] LABS: <PLATELET ESTIMATE> DECREASED; <PLT MORPHOLOGY> NORMAL PLT MORPH; ANISOCYTOSIS 1+; ECHINOCYTES 1+
[2021-06-05 06:10] LABS: OVALOCYTES 1+
[2021-06-05] MEDS: CHOLECALCIFEROL 5,000u TAB PO SCH (08:31)
[2021-06-05] MEDS: ZINC SULFATE 220 MG CAPSULE PO SCH (08:31)
[2021-06-05] MEDS: PANTOPRAZOLE 40 MG IV IVPush SCH (08:31)
[2021-06-05] MEDS: MEROPENEM 1 GM in SODIUM CHLORIDE 0.9% 100 ML IV SCH ×3 (08:31→23:07)
[2021-06-05] MEDS: DEXAMETHASONE 4 MG/ML, 1ML IVPush SCH (08:31)
[2021-06-05] MEDS: ASCORBIC ACID 500 MG TABLET PO SCH ×2 (08:31→15:27)
[2021-06-05] MEDS: INSULIN GLARGINE 100 UNITS/ML, PEN SQ-INSULIN SCH ×2 (09:00→21:05)
[2021-06-05] MEDS: SODIUM CHLORIDE FLUSH 10ML SYR IVF SCH ×2 (09:00→21:04)
[2021-06-05] MEDS: VANCOMYCIN 1,200 MG in SODIUM CHLORIDE 0.9% 250 ML IV SCH (11:47)
[2021-06-05] MEDS: THIAMINE 100 MG in SODIUM CHLORIDE 0.9% 50 ML IV SCH (21:04)
[2021-06-06] MEDS: INSULIN LISPRO 100 UNITS/ML, PEN SQ-INSULIN SCH ×2 (02:42→09:03)
[2021-06-06] MEDS: PROPOFOL 100 ML IV PRN (02:43)
[2021-06-06] MEDS: FENTANYL PF 100 MCG/2ML IVPush PRN (02:43)
[2021-06-06 05:09] LABS: MEAN CORPUSCULAR HEMOGLOBIN 29.9 pg (27.0-34.8); MEAN PLATELET VOLUME 11.2 fL (7.4-10.4); PLATELET COUNT 65 x10^3/uL (130-400); RED BLOOD COUNT 3.93 x10^6/uL (3.82-5.3); RED CELL DISTRIBUTION WIDTH 14.9 % (9.6-15.2)
[2021-06-06 05:11] LABS: ANION GAP 4 mmol/L (5-15); CALCIUM 9.2 mg/dL (8.5-10.1); CHLORIDE 113 mmol/L (98-107)
[2021-06-06 05:13] LABS: VANCOMYCIN,TROUGH 24.4 mcg/mL (5.0-10.0)
[2021-06-06] MEDS: VANCOMYCIN 1,200 MG in SODIUM CHLORIDE 0.9% 250 ML IV SCH (05:33)
[2021-06-06 06:16] LABS: BAND#(MANUAL) 1.36 x10^3/uL; BANDS%(MANUAL) 8 % (0-7); EOS#(MANUAL) 0.17 x10^3/uL (0.0-0.4); EOS% (MANUAL) 1 % (1-7); LYMPH#(MANUAL) 0.85 x10^3/uL (1-3.4); LYMPHS% (MANUAL) 5 % (22-44); METAMYELOCYTES# (MANUAL) 0.17 x10^3/uL (0-0); METAMYELOCYTES% (MANUAL) 1 % (0-1); MONOS#(MANUAL) 1.87 x10^3/uL (0.3-2.7); MONOS% (MANUAL) 11 % (2-9); SEG#(MANUAL) 12.58 x10^3/uL (1.8-6.8); SEGS% (MANUAL) 74 % (42-75)
[2021-06-06 06:17] LABS: <PLATELET ESTIMATE> DECREASED; ANISOCYTOSIS 1+; ECHINOCYTES 1+; LARGE PLATELETS 1+; OVALOCYTES 1+
[2021-06-06] MEDS ORDERED: FENTANYL PF 1,000 MCG in SODIUM CHLORIDE 0.9% 80 ML IV PRN ×2 (09:00→09:30)
[2021-06-06] MEDS: DEXAMETHASONE 4 MG/ML, 1ML IVPush SCH (09:02)
[2021-06-06] MEDS: MEROPENEM 1 GM in SODIUM CHLORIDE 0.9% 100 ML IV SCH (09:02)
[2021-06-06] MEDS: PANTOPRAZOLE 40 MG IV IVPush SCH (09:02)
[2021-06-06] MEDS: ZINC SULFATE 220 MG CAPSULE PO SCH (09:02)
[2021-06-06] MEDS: CHOLECALCIFEROL 5,000u TAB PO SCH (09:03)
[2021-06-06] MEDS: ASCORBIC ACID 500 MG TABLET PO SCH (09:03)
[2021-06-06] MEDS: INSULIN GLARGINE 100 UNITS/ML, PEN SQ-INSULIN SCH (09:04)
[2021-06-06] MEDS ORDERED: LORazepam 2 MG/ML, 1ML IVPush PRN (12:00)
[2021-06-06] MEDS ORDERED: ATROPINE OPHTH SOLN 1%, 5ML PO PRN (12:00)
[2021-06-06] MEDS ORDERED: LORazepam 2 MG/ML, 1ML IV ONE (12:00)
[2021-06-06] MEDS ORDERED: MORPHINE SULFATE 4 MG/ML, 1ML IVPush PRN (12:00)
[2021-06-06] MEDS ORDERED: MORPHINE SULFATE 4 MG/ML, 1ML IV ONE (12:00)
[2021-06-06] MEDS ORDERED: ONDANSETRON 2MG/ML, 2ML IVPush PRN (12:00)
[2021-06-07] MEDS ORDERED: VANCOMYCIN 1,200 MG in SODIUM CHLORIDE 0.9% 250 ML IV SCH (06:00)
== END 2021-06-06 17:36 | DRG 871 ==
LOC: SUATTDRO 13:02 → ED 13:05 → EDIP 13:23 → ICU 18:12
PROVIDERS: ADMIT Internal Medicine; ATTEND Internal Medicine
PROC: 4A10X4Z Monitoring of Central Nervous Electrical Activity, External Approach (ICD-10-PCS; principal; 2021-05-31)
PROC: 0T9B70Z Drainage of Bladder with Drainage Device, Via Natural or Artificial Opening (ICD-10-PCS; 2021-05-31)
PROC: 0BH17EZ Insertion of Endotracheal Airway into Trachea, Via Natural or Artificial Opening (ICD-10-PCS; 2021-05-31)
PROC: 5A1945Z Respiratory Ventilation, 24-96 Consecutive Hours (ICD-10-PCS; 2021-05-31)
PROC: 02HV33Z Insertion of Infusion Device into Superior Vena Cava, Percutaneous Approach (ICD-10-PCS; 2021-05-31)
PROC: XW033E5 Introduction of Remdesivir Anti-infective into Peripheral Vein, Percutaneous Approach, New Technology Group 5 (ICD-10-PCS; 2021-05-31)
DX: A41.89 Other specified sepsis (principal); E11.11 Type 2 diabetes mellitus with ketoacidosis with coma; J96.01 Acute respiratory failure with hypoxia; R65.21 Severe sepsis with septic shock; G93.41 Metabolic encephalopathy; N17.0 Acute kidney failure with tubular necrosis; E43 Unspecified severe protein-calorie malnutrition; U07.1 COVID-19; J12.82 Pneumonia due to coronavirus disease 2019; Z99.11 Dependence on respirator [ventilator] status; G93.1 Anoxic brain damage, not elsewhere classified; I82.402 Acute embolism and thrombosis of unspecified deep veins of left lower extremity; E87.0 Hyperosmolality and hypernatremia; I10 Essential (primary) hypertension; I34.1 Nonrheumatic mitral (valve) prolapse; D75.89 Other specified diseases of blood and blood-forming organs; E83.52 Hypercalcemia; J45.909 Unspecified asthma, uncomplicated; Z66 Do not resuscitate; D69.6 Thrombocytopenia, unspecified; Z51.5 Encounter for palliative care; Z79.899 Other long term (current) drug therapy; Z79.891 Long term (current) use of opiate analgesic; Z68.25 Body mass index [BMI] 25.0-25.9, adult; Z79.4 Long term (current) use of insulin; Z90.710 Acquired absence of both cervix and uterus; Z91.14 Patient's other noncompliance with medication regimen
CPT/HCPCS: 36415; 36600; 70450; 71045; 71250; 74176; 80047; 80048; 80053; 80076; 80202; 81001; 82010; 82040; 82607; 82803; 82962; 83036; 83605; 83735; 84100; 84443; 84484; 85025; 85379; 85384; 85520; 85610; 85730; 86140; 87040; 87070; 87081; 87205; 93005; 93970; 94002; 94003; 95819; 99285; G0378; J0456; J0696; J1100; J1644; J1650; J1815; J2185; J2704; J3010; J3370; J3411; J3480; J7070; C9113; J2060; J2270; J7030; J7050